=== PATIENT | female | born 1950 | race Caucasian/White ===

== ENCOUNTER 2016-10-21 21:36 | Emergency (ER) | payer OTHER ==
[~2016-10-21] VITALS: Ht 160 cm; Wt 52.6 kg
[2016-10-21] MEDS ORDERED: AZAT50TA9 PO (22:22)
[2016-10-21] MEDS ORDERED: ESTR10TA4 PO (22:22)
[2016-10-21] MEDS ORDERED: MESA500C PO (22:22)
[2016-10-21] MEDS ORDERED: LIDOCAINE 1%, 20ML SQ ONE (22:30)
[2016-10-21] MEDS ORDERED: DIPH,PERTUSS(ACELL),TET VAC/PF 0.5 ML IM-VACC ONE ×2 (22:49→23:00)
[2016-10-21] MEDS ORDERED: LIDOCAINE 1%, 20ML ONE (22:49)
[2016-10-22] MEDS ORDERED: ACETAMINOPHEN 325 MG TABLET PO ONE
[2016-10-22] MEDS ORDERED: BACITRACIN ZINC OINT 500U/GM, 0.9 GM ONE (00:50)
[2016-10-22] MEDS ORDERED: ACETAMINOPHEN 325 MG TABLET ONE (01:00)
[2016-10-22 01:17] VITALS: BP 112/63
== END 2016-10-22 01:19 | disposition home or self-care (01) ==
LOC: ED 23:08
DX: S01.21XA Laceration without foreign body of nose, initial encounter (principal); S19.9XXA Unspecified injury of neck, initial encounter; S49.91XA Unspecified injury of right shoulder and upper arm, initial encounter; K50.90 Crohn's disease, unspecified, without complications; Z88.0 Allergy status to penicillin; W10.9XXA Fall (on) (from) unspecified stairs and steps, initial encounter; Y93.89 Activity, other specified; Y92.89 Other specified places as the place of occurrence of the external cause; Y99.8 Other external cause status
CPT/HCPCS: 12051; 70450; 70486; 72125; 90471; 90715